=== PATIENT | female | born 1945 | race Caucasian/White ===

== ENCOUNTER 2019-05-27 07:38 | Day surgery (SDC) | payer MEDICARE, OTHER ==
[~2019-05-27 07:38] MED LIST: PROPOFOL INJ 200 MG/20 ML VIAL IV ONE
[2019-05-27 08:43] LABS: ANION GAP 13 (5-19); BLOOD UREA NITROGEN 14 mg/dL (7-20); CALCIUM 10.6 mg/dL (8.4-10.2); CARBON DIOXIDE 24 mmol/L (22-30); CHLORIDE 106 mmol/L (98-107); GLUCOSE 96 mg/dL (75-110); POTASSIUM 3.8 mmol/L (3.6-5.0)
--- NOTE | 2019-05-27 10:24 | Discharge Summary ---
Discharge Summary (SDC) - Discharge Final Diagnosis: Colon polyps Date of Surgery: 05/27/19 Discharge Date: 05/27/19 Condition: Stable Treatment or Instructions: Discharge home. Diet as tolerated. Activity: Nonstrenuous. Follow-up with me in 7 to 10 days. Referrals: ORALIA FORTUNE MD [Primary Care Provider] - Discharge Diet: As Tolerated Respiratory Treatments at Home: Deep Breathing/Coughing, Incentive Spirometer Discharge Activity: Balance Activity w/Rest Home Care Assistance: None Needed Report the Following to Your Physician Immediately: Shortness of Breath, Nausea, Vomiting, Increase in Pain, Fever over 101 Degrees, Unusual Bleeding
--- NOTE | 2019-05-27 10:28 | Operative Report ---
Nonrecallable Operative Report DATE OF SURGERY: 05/27/19 PREOPERATIVE DIAGNOSIS: Screening for malignancy POSTOPERATIVE DIAGNOSIS: Multiple colon polyps OPERATION: 1. Colonoscopy to the cecum. 2. Hot biopsy of colon polyp x2. 3. Snare polypectomy of sessile colon polyp in the ascending colon. SURGEON: EVELYN SEQUEIRA ANESTHESIA: LMAC TISSUE REMOVED OR ALTERED: 1. Hot biopsy of small cecal polyp. 2. Snare polypectomy of sessile ascending colon polyp. 3. Hot biopsy of small colon polyp at 20 cm. COMPLICATIONS: None apparent ESTIMATED BLOOD LOSS: Minimal PROCEDURE: Procedure in detail: After informed consent was obtained, the patient was brought to the operating room and laid in the left lateral decubitus position. The endoscope was passed up the rectum, sigmoid colon, descending colon, across the transverse colon, down the ascending colon, and into the cecum. The appendiceal orifice and ileocecal valve were identified. The scope was then withdrawn, circumferentially noting the mucosa. The prep was fair. Multiple washings and suctioning's were required in order to visualize the entirety of the mucosa. This was successful. In the cecum, a small, diminutive polyp was identified. It was removed in its entirety by hot biopsy forceps. The scope was then pulled back into the ascending colon where a larger, sessile polyp was identified. It was removed in its entirety via hot snare polypectomy. The scope was then withdrawn past the ascending colon, transverse colon, down the descending colon, and sigmoid colon. At 20 cm another small polyp was removed in its entirety via hot biopsy forcep. The scope was withdrawn down into the rectum. A retroflexion maneuver was performed, noting no significant internal hemorrhoids. The scope was straightened, air was suctioned from the rectum, the scope was removed, and the procedure was concluded. All sponge, instrument, and needle counts were correct. Condition: Stable.
[2019-05-27 10:57] VITALS: BP 159/68
--- NOTE | 2019-05-27 22:43 | EKG REPORT ---
SEVERITY:- ABNORMAL ECG - SINUS RHYTHM PROBABLE LEFT ATRIAL ABNORMALITY REPOL ABNRM SUGGESTS ISCHEMIA, DIFFUSE LEADS : Confirmed by: Pawan Arrieta 27-May-2019 22:42:05
== END 2019-05-27 10:48 | disposition home or self-care (01) ==
LOC: END 07:38
PROVIDERS: ATTEND Surgery
DX: Z86.010 Personal history of colon polyps (principal); D12.0 Benign neoplasm of cecum; D12.2 Benign neoplasm of ascending colon; D12.6 Benign neoplasm of colon, unspecified; E78.00 Pure hypercholesterolemia, unspecified; Z85.828 Personal history of other malignant neoplasm of skin; Z85.3 Personal history of malignant neoplasm of breast
CPT/HCPCS: 45384; 45385; 36415; 80048; 88305 ×2; 93005; 93010; 00811; J2704; 811